=== PATIENT | female | born 1945 | race Caucasian/White ===

== ENCOUNTER → 2016-07-19 | Outpatient (CLI) | payer MEDICARE, BC ==
[~2016-07-19] MED LIST: ACETAMINOPHEN PO; ADVIL200 M3 PO; ANASTROZOLE1 MG PO; ATORVASTATIN CA10 MG PO; B-121000 MC1 PO; FLEXERIL10 MG PO; KEFLEX500 MG PO; LISINOPRIL20 MG PO; LORTAB 7.51 TAB 7.5/ PO; PHENERGAN25 MG PO; VICODIN 5/1 TAB 5/50 PO; VITAMIN B12 IM; VITAMIN D31000 UNI1 PO
--- NOTE | ~2016-07-19 | BD1 ---
[facility] A Service of [facility] & [facility] RADIOLOGY TEXT RESULTS PATIENT: WINSTON LOVETT LOCATION: [facility] : 47 UNIT #: [id number] AGE: [address]: Rustam Hayes MD SEX: F ORDER DR: [id number] [facility] [address] [place], [place] [address] [id number] O MR#: [id number] Acc #: [id number] NAME: WINSTON LOVETT : 1945 SEX: F STUDY DATE/TIME: 07/19/2016 10:08 UNIT: [facility] ROOM: STUDY DESCRIPTION: BD Dexa Bone Dens 1+ Site Attending Physician: Rustam Hayes M.D. Ordering Physician: Rustam Hayes M.D. Primary Care Physician: Anirudh Cadena D.O. MEDICAL IMAGING REPORT This report is preliminary unless electronic signature is present EXAM DXA scan 07/19/2016 HISTORY Status post menopause with no hormone replacement therapy. Osteopenia. Breast carcinoma. Family history of breast carcinoma in sister. Hypertension with blood pressure medication for 2 years. FINDINGS Bone mineral density in the lumbar spine from L1-L4 was 0.969 g/cm2 which is 0.7 standard deviations below the mean when compared to the young adult reference population which is within the range of normal. This is 1.4 standard deviations above the mean when compared to the age-matched population. Compared with 02/25/2015 there has been a decrease in bone mineral density in the lumbar spine of 4.6%. Bone mineral density in the left femoral neck was 0.727 g/cm2 which is 1.1 standard deviations below the mean when compared to the young adult reference population which is characteristic of osteopenia. This is 0.7 standard deviations above the mean when compared to the age-matched population. Compared with 02/25/2015 there has been a decrease in bone mineral density in the left hip of 3.4%. IMPRESSION Bone mineral density in the lumbar spine within the range of normal and within the left hip characteristic of osteopenia. Compared with 02/25/2015 there has been a decrease in bone mineral density in the lumbar spine and the left hip. Dictated by... Telly Ponce M.D. THIS IS AN ELECTRONICALLY VERIFIED REPORT Telly Ponce M.D. at 07/20/2016 6:06 AM [facility] A Service of [facility] & [facility] RADIOLOGY TEXT RESULTS PATIENT: WINSTON LOVETT [id number] [birth year] UNIT #: [id number] AGE: [address]: Rustam Hayes MD SEX: F ORDER DR: Jayson TD: 07/19/2016 16:31 JOB #: [id number] MEDICAL IMAGING REPORT COPY
== END | disposition home or self-care (01) ==
LOC: CWCC 09:38
DX: Z13.820 Encounter for screening for osteoporosis (principal); C50.412 Malignant neoplasm of upper-outer quadrant of left female breast; Z17.0 Estrogen receptor positive status [ER+]; M85.88 Other specified disorders of bone density and structure, other site
CPT/HCPCS: 77080